=== PATIENT | male | born 1965 | race Caucasian/White ===

== ENCOUNTER 2017-04-11 09:28 | Observation (INO) | payer OTHER ==
[2017-04-11] MEDS ORDERED: PEPCID 20 MG IV PREMIX* 20 MG/50 ML BAG IV ONE ×2 (09:49→09:53)
[2017-04-11] MEDS ORDERED: ZOFRAN INJ 4 MG VIAL IVP ONE (09:49)
[2017-04-11] MEDS ORDERED: MORPHINE SULFATE INJ 4 MG IVP ONE ×2 (09:49→10:58)
--- NOTE | 2017-04-11 09:50 | DR.ABDMALE ---
HPI - Time seen Time seen: 09:30 - PCP Primary Care Physician: ruddy - HPI comment HPI Comment: PATIENT WOKE UP THIS - Complaint Chief Complaint Doctors Comments: RUQ AND EPIGASTRIC ABDOMINAL PAIN FOR SEVERAL HOURS. Chief Complaint:: Patient c/o epigastric pain that radiates to back with nausea. Patient states he woke up with the pain this morning. - Reviewed Nurses Notes Review: Yes - Mode of arrival Mode of Arrival: Ambulatory - Timing Onset of Chief Complaint: 04/11/17 Came on: Suddenly - Duration Duration: Constant Duration: Hours - Location Location: RUQ, Epigastric - Severity Severity: Moderate - Quality Quality: Sharp - Context Onset: Suddenly History of: None - Modifying factors Worsening Factors: Nothing Improving Factors: Nothing PMH - PMH Past Medical History: No Past Surgical History: No - Family History History of Family Medical Conditions: No - Social History Does patient currently use any type of tobacco product: No Have you used tobacco products in the last 12 months: No Type of Tobacco Use: None Does any household member use tobacco: No Alcohol Use: None Do you use any recreational Drugs:: No Lives With: Family Lives Where: Home - infectious screening In the last 2 months have you had wt loss of >10#?: NO Have you had fever, night sweats or hemotysis?: No Have you traveled outside the country in the last 6 months?: No Isolation: Standard ROS - Review of Systems Constitutional: No Symptoms Reported Eyes: No Symptoms Reported ENTM: No Symptoms Reported Respiratoy: No Symptoms Reported Cardiovascular: No Symptoms Reported Gastrointestinal/Abdominal: Abdominal Pain Genitourinary: No Symptoms Reported Neurological: No Symptoms Reported Musculoskeletal: No Symptoms Reported Integumentary: No Symptoms Reported Hematologic/Lymphatic: No Symptoms Reported Endocrine: No Symptoms Reported All Other Systems: Reviewed and Negative PE - Vital Signs Vital Signs: Temp Pulse Pulse Resp BP BP Pulse Ox 04/11/17 11:39 78 26 H 198/82 96 04/11/17 11:05 76 25 H 214/98 04/11/17 10:50 70 20 201/100 04/11/17 09:43 74 18 222/119 98 04/11/17 09:29 98.2 F 75 19 200/98 98 - General Limitations: No Limitations General Appearance: Alert - Head Head Exam: Normal Inspection - Eyes Eye exam: Normal Appearance - ENT ENT Exam: Normal External Ear Exam - Neck Neck Exam: Normal Inspection - Chest Chest Inspection: Symmetric Chest Wall Rise - Respiratory Respiratory Exam: Normal Lung Sounds Bilat Respiratory Exam: Bilateral Clear to Auscultation - Cardiovascular Cardiovascular Exam: Regular Rate, Normal Rhythm, Normal Heart Sounds - Abdominal Exam Abdominal Exam: Normal Bowel Sounds, Soft. negative: Tenderness - Rectal Rectal Exam: Deferred - Back Back Exam: Normal Inspection - Extremeties Extremities Exam: Normal Inspection - Exam: Male: Deferred - Neurologic Neurological Exam: Alert, Oriented X3 - Psychiatric Psychiatric Exam: Normal Affect, Normal Mood - Skin Skin Exam: Normal Color MDM - Additional Information Obtained From Additional information provided by: Family - Differential Diagnosis Differential Diagnosis: Bowel Obstruction, Cholelethiasis, Diverticular disease , Esophagitis, Gastritus/PUD, Gastroenteritis, Pancreatitis, Urinary tract infection, Urolithiasis Course - Treatment Treatment: SEE ORDERS. - Education/Counseling Education/Counseling: Patient, Education Educated On: Treatment, Diagnosis, Needs for Follow Up ROR - Labs Reviewed Laboratory Results Reviewed?: Yes Result Diagrams: 04/11/17 09:40 04/11/17 09:40 Laboratory: WBC 11.0 X10^3/uL (3.6-10.0) H 04/11/17 09:40 RBC 5.21 X10^6/uL (4.7-6.0) 04/11/17 09:40 Hgb 15.5 g/dL (13.5-18.0) 04/11/17 09:40 Hct 45.2 % (42.0-54.0) 04/11/17 09:40 MCV 86.7 fL (80.0-100.0) 04/11/17 09:40 MCH 29.8 pg (27.0-34.0) 04/11/17 09:40 MCHC 34.4 g/dL (33.0-35.0) 04/11/17 09:40 RDW 13.7 % (11.6-16.5) 04/11/17 09:40 Plt Count 187 X10^3/uL (150.0-450.0) 04/11/17 09:40 MPV 9.4 fL (7.4-11.0) 04/11/17 09:40 Neut % 55.4 % (42.0-75.0) 04/11/17 09:40 Lymph % 29.3 % (21.0-51.0) 04/11/17 09:40 [place] % 8.6 % (0.0-13.0) 04/11/17 09:40 Eos % 5.5 % (0.9-2.9) H 04/11/17 09:40 Baso % 1.2 % (0.2-1.0) H 04/11/17 09:40 Neut # 6.1 x10^3/uL (2.2-4.8) H 04/11/17 09:40 Lymph # 3.2 X10^3/uL (1.3-2.9) H 04/11/17 09:40 [place] # 1.0 x10^3/uL (0.3-0.8) H 04/11/17 09:40 Eos # 0.6 x10^3/uL (0.0-0.2) H 04/11/17 09:40 Baso # 0.1 X10^3/uL (0.0-0.1) 04/11/17 09:40 Absolute Nucleated RBC 0.1 /100WBC 04/11/17 09:40 Sodium 141 mmol/L (136-145) 04/11/17 09:40 Corrected Sodium TNP 04/11/17 09:40 Potassium 3.6 mmol/L (3.5-5.1) 04/11/17 09:40 Chloride 104 mmol/L (98-107) 04/11/17 09:40 Carbon Dioxide 30.4 mmol/L (21-32) 04/11/17 09:40 BUN 23 mg/dL (7-18) H 04/11/17 09:40 Creatinine 1.16 mg/dL (0.70-1.30) 04/11/17 09:40 Est GFR (MDRD) Af Amer > 60 (>60) 04/11/17 09:40 Est GFR (MDRD) Non-Af > 60 (>60) 04/11/17 09:40 Glucose 108 mg/dL (65-99) H 04/11/17 09:40 Calcium 9.4 mg/dL (8.5-10.1) 04/11/17 09:40 Corrected Calcium TNP 04/11/17 09:40 Total Bilirubin 0.50 mg/dL (0.2-1.0) 04/11/17 09:40 AST 32 Units/L (15-37) 04/11/17 09:40 ALT 72 Units/L (12-78) 04/11/17 09:40 Alkaline Phosphatase 91 Units/L (46-116) 04/11/17 09:40 Creatine Kinase 45 Units/L (39-308) 04/11/17 09:40 CK-MB (CK-2) < 1.0 ng/mL (0-4.0) 04/11/17 09:40 CK/CKMB % Calc 2.2 % (<4) 04/11/17 09:40 Troponin I < 0.02 ng/mL (0-1.5) 04/11/17 09:40 Total Protein 8.2 g/dL (6.4-8.2) 04/11/17 09:40 Albumin 3.7 g/dL (3.4-5.0) 04/11/17 09:40 Globulin 4.5 g/dL (2.5-4.5) 04/11/17 09:40 Albumin/Globulin Ratio 0.8 Ratio (1.1-2.1) L 04/11/17 09:40 Amylase 25 Units/L (25-115) 04/11/17 09:40 Lipase 145 Units/L (73-393) 04/11/17 09:40 H. pylori IgG Antibody Negative (NEGATIVE) 04/11/17 09:40 - EKG Rhythm: NSR (EKG NOTED) - Diagnosis Discharge Problem: Cholelithiasis Abdominal pain Qualifiers: Abdominal location: upper abdomen, unspecified Qualified Code(s): R10.10 - Upper abdominal pain, unspecified Hypertension Qualifiers: Hypertension type: essential hypertension Qualified Code(s): I10 - Essential ( primary) hypertension - Discharge Plan Disposition: ADMITTED INPATIENT Condition: Stable - Follow ups/Referrals - Instructions
[2017-04-11] MEDS ORDERED: ZOFRAN INJ 4 MG VIAL ONE (09:54)
[2017-04-11] MEDS ORDERED: MORPHINE SULFATE INJ 4 MG ONE ×2 (09:54→11:07)
[2017-04-11] MEDS ORDERED: NS 1000 ML 1,000 ML ONE (09:54)
[2017-04-11 10:00] LABS: BASOPHILS # (AUTO) 0.1 X10^3/uL (0.0-0.1); BASOPHILS % (AUTO) 1.2 % (0.2-1.0); EOSINOPHILS # (AUTO) 0.6 x10^3/uL (0.0-0.2); EOSINOPHILS % (AUTO) 5.5 % (0.9-2.9); HEMATOCRIT 45.2 % (42.0-54.0); HEMOGLOBIN 15.5 g/dL (13.5-18.0); LYMPHOCYTES # (AUTO) 3.2 X10^3/uL (1.3-2.9); LYMPHOCYTES % (AUTO) 29.3 % (21.0-51.0); MEAN CORPUSCULAR HEMOGLOBIN 29.8 pg (27.0-34.0); MEAN CORPUSCULAR HGB CONC 34.4 g/dL (33.0-35.0); MEAN CORPUSCULAR VOLUME 86.7 fL (80.0-100.0); MEAN PLATELET VOLUME 9.4 fL (7.4-11.0); MONOCYTES % (AUTO) 8.6 % (0.0-13.0); NEUTROPHILS # (AUTO) 6.1 x10^3/uL (2.2-4.8); NEUTROPHILS % (AUTO) 55.4 % (42.0-75.0); PLATELET COUNT 187 X10^3/uL (150.0-450.0); RED BLOOD COUNT 5.21 X10^6/uL (4.7-6.0); RED CELL DISTRIBUTION WIDTH 13.7 % (11.6-16.5)
[2017-04-11] MEDS ORDERED: NS 1000 ML 1,000 ML IV SCH (10:00)
[2017-04-11 10:06] LABS: AMYLASE 25 Units/L (25-115); LIPASE 145 Units/L (73-393)
[2017-04-11 10:14] LABS: BLOOD UREA NITROGEN 23 mg/dL (7-18); CALCIUM 9.4 mg/dL (8.5-10.1); CARBON DIOXIDE 30.4 mmol/L (21-32); CHLORIDE 104 mmol/L (98-107); CREATININE 1.16 mg/dL (0.70-1.30); SODIUM 141 mmol/L (136-145); TROPONIN I < 0.02 ng/mL (0-1.5); eGFR BLACK RACES > 60 (>60); eGFR NON BLACK RACES > 60 (>60)
[2017-04-11 10:28] LABS: ALANINE AMINOTRANSFERASE 72 Units/L (12-78); ALBUMIN 3.7 g/dL (3.4-5.0); ALKALINE PHOSPHATASE 91 Units/L (46-116); ASPARTATE AMINO TRANSFERASE 32 Units/L (15-37); CKMB % 2.2 % (<4); CREATINE KINASE 45 Units/L (39-308); CREATINE KINASE MB < 1.0 ng/mL (0-4.0); TOTAL PROTEIN 8.2 g/dL (6.4-8.2)
[2017-04-11] MEDS ORDERED: NIFEDIPINE CAP 10 MG PO ONE (10:29)
--- NOTE | 2017-04-11 10:38 | CT ---
HISTORY: Abdominal pain Study: CT abdomen pelvis without contrast Comparison: None Technique: Axial noncontrast images with coronal and sagittal reformats. Dose reduction procedures we re used with mA/kv adjusted for body size. The examination is limited due to the lack of intravenous and oral contrast. Findings: The lung bases are clear. The liver is normal in size and configuration but decreased in attenuation suggestive of fatty infiltration. Multiple gallstones are present within the gallbladder. There are n o findings suggestive of cholecystitis. The spleen, adrenal glands, and pancreas are within normal li mits to the limitations of an unenhanced examination. The kidneys are unobstructed and without stones . No ureteral calculi are identified. The appendix is not identified with absolute certainty. There a re no secondary signs of appendicitis. There are no findings suggestive of diverticulitis or colitis. No enlarged intraperitoneal or retroperitoneal lymphadenopathy is identified. Scattered nonenlarged Andry nodes are present. Examination of the pelvis demonstrated no evidence for pelvic masses, pelvic fluid, or pelvic lymphadenopathy. No bladder abnormality is identified. No lytic or blastic skeletal lesions are identified. IMPRESSION: Diffuse fatty infiltration of the liver Cholelithiasis without evidence for cholecystitis Reported By:
[2017-04-11] MEDS ORDERED: NIFEDIPINE CAP 10 MG ONE (10:52)
[2017-04-11 11:34] LABS: BILIRUBIN,URINE NEGATIVE (NEGATIVE); BLOOD/HEMOGLOBIN,URINE 1+ (NEGATIVE); GLUCOSE, URINE NEGATIVE (NEGATIVE); KETONES,URINE 1+ (NEGATIVE); LEUKOCYTE ESTERASE ,URINE NEGATIVE (NEGATIVE); NITRITES,URINE NEGATIVE (NEGATIVE); PH,URINE 6.5 (5.0 - 8.0); PROTEIN,URINE 1+ (NEGATIVE); UROBILINOGEN,URINE NORMAL (NORMAL)
[2017-04-11] MEDS ORDERED: PEPCID 20 MG IV PREMIX* 20 MG/50 ML BAG IV PRN (11:47)
[2017-04-11] MEDS ORDERED: MORPHINE SULFATE INJ 2 MG INJ IVP PRN (11:47)
[2017-04-11 11:50] LABS: APPEARANCE,URINE CLOUDY (CLEAR); BACTERIA,URINE TRACE /HPF (NEGATIVE); COLOR,URINE YELLOW (YELLOW); SQUAMOUS EPITHELIAL CELL,UR MODERATE /HPF (NEGATIVE)
[2017-04-11] MEDS ORDERED: ZOFRAN INJ 4 MG VIAL IVP PRN (11:50)
[2017-04-11] MEDS ORDERED: CATAPRES-TTS-1 TD SCH (12:00)
[2017-04-11] MEDS: NS 1/2 1000 ML IV 1,000 ML IV SCH (15:04)
[2017-04-11 15:27] VITALS: BMI 47.0
[2017-04-11] MEDS ORDERED: PREVNAR 13 IM ONE (15:27)
[2017-04-11] MEDS ORDERED: FLUVIRIN IM ONE (15:27)
[2017-04-11] MEDS ORDERED: NS 1/2 1000 ML IV 1,000 ML IV ONE (15:44)
--- NOTE | 2017-04-11 20:01 | US ---
RIGHT UPPER QUADRANT ULTRASOUND HISTORY: Epigastric pain Comparison: None Technique: Multiple borden scale and color flow Doppler images of the right upper quadrant were obtaine d. Findings: Overall study is limited by overlying bowel gas. The liver is hyperechoic. No focal mass. No intrahe patic bile duct dilatation. Multiple gallstones are seen. No pericholecystic fluid or gallbladder wal l thickening. The technologist did not report a positive sonographic Betancourt's sign. The common bile d uct could not be identified. The right kidney measures 11.5 cm. No hydronephrosis or renal masses. IMPRESSION: 1. Cholelithiasis without other evidence cholecystitis. 2. Hepatic steatosis. Reported By:
[2017-04-12 05:49] LABS: BASOPHILS # (AUTO) 0.1 X10^3/uL (0.0-0.1); EOSINOPHILS # (AUTO) 0.4 x10^3/uL (0.0-0.2); EOSINOPHILS % (AUTO) 4.2 % (0.9-2.9); HEMATOCRIT 39.8 % (42.0-54.0); HEMOGLOBIN 13.6 g/dL (13.5-18.0); LYMPHOCYTES # (AUTO) 2.8 X10^3/uL (1.3-2.9); LYMPHOCYTES % (AUTO) 27.1 % (21.0-51.0); MEAN CORPUSCULAR HEMOGLOBIN 29.9 pg (27.0-34.0); MEAN CORPUSCULAR HGB CONC 34.2 g/dL (33.0-35.0); MEAN CORPUSCULAR VOLUME 87.3 fL (80.0-100.0); MEAN PLATELET VOLUME 9.8 fL (7.4-11.0); MONOCYTES % (AUTO) 9.9 % (0.0-13.0); NEUTROPHILS # (AUTO) 5.9 x10^3/uL (2.2-4.8); NEUTROPHILS % (AUTO) 57.8 % (42.0-75.0); PLATELET COUNT 174 X10^3/uL (150.0-450.0); RED BLOOD COUNT 4.56 X10^6/uL (4.7-6.0); RED CELL DISTRIBUTION WIDTH 13.9 % (11.6-16.5); WHITE BLOOD COUNT 10.1 X10^3/uL (3.6-10.0)
[2017-04-12 06:14] LABS: ALANINE AMINOTRANSFERASE 112 Units/L (12-78); ALBUMIN 3.1 g/dL (3.4-5.0); ALKALINE PHOSPHATASE 79 Units/L (46-116); AMYLASE 24 Units/L (25-115); ASPARTATE AMINO TRANSFERASE 76 Units/L (15-37); BLOOD UREA NITROGEN 20 mg/dL (7-18); CALCIUM 8.6 mg/dL (8.5-10.1); CARBON DIOXIDE 28.7 mmol/L (21-32); CHLORIDE 105 mmol/L (98-107); COR CA(FOR HYPOALB) 9.3 mg/dL (8.5-10.1); CREATININE 1.15 mg/dL (0.70-1.30); LIPASE 135 Units/L (73-393); SODIUM 141 mmol/L (136-145); TOTAL PROTEIN 6.9 g/dL (6.4-8.2); eGFR BLACK RACES > 60 (>60); eGFR NON BLACK RACES > 60 (>60)
--- NOTE | 2017-04-12 09:07 | DR.CONSULT ---
Consult - Consultation for Day of: Date: 04/11/17 - Chief Complaint Chief Complaint: RUQ pain. - Allergies Allergies/Adverse Reactions: Allergies Allergy/AdvReac Type Severity Reaction Status Date / Time penicillin G Allergy Verified 04/11/17 09:31 - History of Present Illness History of Present Illness: The patient is a 51 yo M who presented to the [facility] ER with RUQ pain. The pain was sharp with radiation to the back. (+) nausea but no vomiting. The patient reports the pain awoke him from sleep. (- ) fatty food intake the night before. Mr. Osullivan does report having diarrhea the day prior without any other symtpoms. A CT in the ER demonstrated cholelithiasis without cholecystitis. The patient was admitted for pain control and anti-emetics. - Past Medical History Past Medical History: Diabetes, Hypertension - Past Surgical History Surgical History: No History - Family History Family Medical History: Diabetes Mellitus, Hypertension - Social History Does patient currently use any type of tobacco product: No Have you used tobacco products in the last 12 months: No Type of Tobacco Use: None How many years tobacco product used: 50 Does any household member use tobacco: No Alcohol Use: None Drug Use: None - Medications Home Medications: NK [NK] 04/11/17 [History Confirmed 04/11/17] - Review of Systems Constitutional: No Symptoms Reported Eyes: No Symptoms Reported ENT: No Symptoms Reported Respiratory: Shortness of Breath (With exertion) Gastrointestinal: Nausea, Abdominal Pain, Diarrhea (Resolved) Genitourinary: No Symptoms Reported Musculoskeletal: No Symptoms Reported Skin: No Symptoms Reported Neurological: No Symptoms Reported - Physical Exam Vital Signs: Temperature 98.5 F Pulse Rate [Left Brachial] 67 Pulse Rate [Apical] 82 Pulse Rate 75 Respiratory Rate 16 Blood Pressure [Left Arm] 131/68 Blood Pressure 200/98 O2 Sat by Pulse Oximetry 98 Oriented: Normal Eyes: Normal Ear: Normal Nose: Normal Respiratory: Clear Throughout Cardiovascular: Normal Auscultation: Bowel Sounds: Normal Palpation: Normal Tenderness: RUQ ((-) Betancourt's) Skin: Normal Musculoskeletal: Normal Psychiatric: Normal Mood Description: Calm Affect: Normal Speech Pattern: Clear, Appropriate - Plan Plan: 51 yo M with symptomatic cholelithiasis. Patient's pain improved. Tolerated low fat diet last pm without pain or nausea. However, multiple stones and h/o diabetes. Recommend elective cholecystectomy. h/o noncompliant HTN. Mild SOB with exertion. May need cardiac clearance prior to general anesthesia. Will discuss with primary team. Risk / benefits surgical intervention d/w patient who request surgery.
--- NOTE | 2017-04-12 11:41 | DR.H&P ---
H&P - History & Physical for Day of: H&P Date: 04/11/17 - Chief Complaint Chief Complaint: ABDOMINAL PAIN - Allergies Allergies/Adverse Reactions: Allergies Allergy/AdvReac Type Severity Reaction Status Date / Time penicillin G Allergy Verified 04/11/17 09:31 - History of Present Illness History of Present Illness: IS A 51 YEAR OLD PATIENT OF OURS WHO PRESENTED TO THE EMERGENCY ROOM WITH COMPLAINTS OF RUQ AND EPIGASTRIC PAIN UPON WAKING UP THIS MORNING. HE REPORTS THAT PAIN RADIATES TO THE BACK. PAIN IS ACCOMPAINIED BY NAUSEA. HE DENIES FEVER, VOMITING, OR DIARRHEA. PATIENT REPORTS A HISTORY OF HTN AND DIABETES, BUT STATES THAT HE DOES NOT TAKE MEDICATIONS DUE TO INABILITY TO PAY FOR THEM. JOSHUA IS MORBIDLY OBESE AND IS NOT COMPLAINT WITH A DIABETIC OR CARDIAC DIET. ON EXAMINATION, LUNGS ARE CLEAR TO AUSCULTATION. ABDOMEN IS ROUND, SOFT, AND NOTED WITH TENDERNESS TO THE RUQ AND EPIGASTRIC REGIONS. NORMAL BOWEL SOUNDS ARE NOTED IN ALL QUADRANTS. ON ARRIVAL, VITAL SIGNS WERE 98.2-75-19-98%-200/98. LABS AND CT WERE OBTAINED. ABNORMAL LAB VALUES INCLUDE THE FOLLOWING: WBC 11.0, BUN 23, GLUCOSE 108, H-PYLORI NEGATIVE. CT ABD/PELVIS WITHOUT CONTRAST REPORTED DIFFUSE FATTY INFILTRATION OF THE LIVER , CHOLELITHIASIS WITOUT EVIDENCE FOR CHOLECYSTITIS. A GALLBLADDER US WAS OBTAINED AND REPORTED CHOLELITHIASIS WITHOUT OTHER EVIDENCE FOR CHOLECYSTITIS, HEPATIC STEATOSIS. AN EKG WAS OBTAINED AND REPORTED SINUS RHYTHM WITH HR 74. HE WAS GIVEN NIFEDIPINE 10MG PO IN ER. BLOOD PRESSURE EVENTUALLY DECREASED TO 180/ 85. HE WAS ALSO GIVEN MORPHINE 4MG IVP X 2, PEPCID 20MG IV, AND ZOFRAN 4MG IV IN THE ER WITH ONLY MILD IMPROVEMENT IN PAIN. PATIENT WAS ADMITTED FOR FURTHER TREATMENT AND EVALUATION. WAS CONSULTED TO REVIEW PATIENTS SCANS. WE PLANNED TO FOLLOW UP WITH AM LABS AND CONTINUE TO MONITOR PATIENT. - Past Medical History Past Medical History: Diabetes, Hypertension - Past Surgical History Surgical History: No History - Family History Family Medical History: Diabetes Mellitus, Hypertension - Social History Does patient currently use any type of tobacco product: No Have you used tobacco products in the last 12 months: No Type of Tobacco Use: None How many years tobacco product used: 50 Does any household member use tobacco: No Alcohol Use: None Drug Use: None - Medications Home Medications: NK [NK] 10/19/17 [History Confirmed 04/11/17] - Physical Exam Vital Signs: Temperature 98.7 F Pulse Rate [Left Brachial] 62 Pulse Rate [Apical] 82 Pulse Rate 75 Respiratory Rate 20 Blood Pressure [Left Arm] 126/79 Blood Pressure 200/98 O2 Sat by Pulse Oximetry 96 Oriented: Normal
[2017-04-12] MEDS: NS 1/2 1000 ML IV 1,000 ML IV SCH (22:35)
[2017-04-13 05:57] LABS: BASOPHILS # (AUTO) 0.1 X10^3/uL (0.0-0.1); BASOPHILS % (AUTO) 0.7 % (0.2-1.0); EOSINOPHILS # (AUTO) 0.7 x10^3/uL (0.0-0.2); EOSINOPHILS % (AUTO) 6.5 % (0.9-2.9); HEMATOCRIT 39.4 % (42.0-54.0); HEMOGLOBIN 13.6 g/dL (13.5-18.0); LYMPHOCYTES # (AUTO) 2.9 X10^3/uL (1.3-2.9); LYMPHOCYTES % (AUTO) 28.4 % (21.0-51.0); MEAN CORPUSCULAR HEMOGLOBIN 30.1 pg (27.0-34.0); MEAN CORPUSCULAR HGB CONC 34.5 g/dL (33.0-35.0); MEAN CORPUSCULAR VOLUME 87.1 fL (80.0-100.0); MEAN PLATELET VOLUME 9.6 fL (7.4-11.0); MONOCYTES # (AUTO) 0.9 x10^3/uL (0.3-0.8); MONOCYTES % (AUTO) 9.2 % (0.0-13.0); NEUTROPHILS # (AUTO) 5.7 x10^3/uL (2.2-4.8); NEUTROPHILS % (AUTO) 55.2 % (42.0-75.0); PLATELET COUNT 169 X10^3/uL (150.0-450.0); RED BLOOD COUNT 4.53 X10^6/uL (4.7-6.0); RED CELL DISTRIBUTION WIDTH 13.7 % (11.6-16.5); WHITE BLOOD COUNT 10.4 X10^3/uL (3.6-10.0)
[2017-04-13 06:33] LABS: ALANINE AMINOTRANSFERASE 87 Units/L (12-78); ALKALINE PHOSPHATASE 73 Units/L (46-116); ASPARTATE AMINO TRANSFERASE 35 Units/L (15-37); BLOOD UREA NITROGEN 16 mg/dL (7-18); CALCIUM 8.7 mg/dL (8.5-10.1); CARBON DIOXIDE 30.1 mmol/L (21-32); CHLORIDE 106 mmol/L (98-107); COR CA(FOR HYPOALB) 9.5 mg/dL (8.5-10.1); COR NA(FOR HYPERGLY) 142 mmol/L (136-145); CREATININE 1.06 mg/dL (0.70-1.30); SODIUM 142 mmol/L (136-145); TOTAL PROTEIN 6.7 g/dL (6.4-8.2); eGFR BLACK RACES > 60 (>60); eGFR NON BLACK RACES > 60 (>60)
[2017-04-13 12:11] VITALS: BP 115/68
[2017-04-13] MEDS: NS 1/2 1000 ML IV 1,000 ML IV SCH (12:12)
== END 2017-04-13 14:20 | disposition home or self-care (01) ==
LOC: ER 09:37 → MED/SURG 11:45
PROVIDERS: ADMIT Internal Medicine; ATTEND Internal Medicine
PROC: 3E0234Z Introduction of Serum, Toxoid and Vaccine into Muscle, Percutaneous Approach (ICD-10-PCS; principal; 2017-04-11)
PROC: 3E0234Z Introduction of Serum, Toxoid and Vaccine into Muscle, Percutaneous Approach (ICD-10-PCS; 2017-04-11)
DX: R10.84 Generalized abdominal pain (principal); I10 Essential (primary) hypertension; K80.80 Other cholelithiasis without obstruction; R10.13 Epigastric pain; R10.10 Upper abdominal pain, unspecified; Z23 Encounter for immunization
CPT/HCPCS: 36415; 74176; 76705; 80053; 81001; 82150; 82550; 82553; 83690; 84484; 85025; 86677; 90686; 93005; 94760; 96365; 96367; 96374; 96375; 99284; A4222; S0028; 90670; G0378; J2270; J2405

== ENCOUNTER 2017-07-10 11:12 | Day surgery (SDC) | payer OTHER ==
[2017-07-10] MEDS: MARCAINE 0.25% INJ ONE ×2 (07:50→09:25)
[2017-07-10] MEDS: XYLOCAINE 1% and EPINEPHRINE 1:100,000 ONE ×2 (07:50→09:25)
[2017-07-10 07:54] LABS: BASOPHILS # (AUTO) 0.1 X10^3/uL (0.0-0.1); BASOPHILS % (AUTO) 0.9 % (0.2-1.0); EOSINOPHILS # (AUTO) 0.5 x10^3/uL (0.0-0.2); EOSINOPHILS % (AUTO) 4.4 % (0.9-2.9); HEMATOCRIT 43.1 % (42.0-54.0); HEMOGLOBIN 14.8 g/dL (13.5-18.0); LYMPHOCYTES # (AUTO) 2.9 X10^3/uL (1.3-2.9); LYMPHOCYTES % (AUTO) 27.2 % (21.0-51.0); MEAN CORPUSCULAR HEMOGLOBIN 29.8 pg (27.0-34.0); MEAN CORPUSCULAR HGB CONC 34.4 g/dL (33.0-35.0); MEAN CORPUSCULAR VOLUME 86.6 fL (80.0-100.0); MEAN PLATELET VOLUME 9.1 fL (7.4-11.0); MONOCYTES # (AUTO) 1.1 x10^3/uL (0.3-0.8); MONOCYTES % (AUTO) 10.1 % (0.0-13.0); NEUTROPHILS # (AUTO) 6.1 x10^3/uL (2.2-4.8); NEUTROPHILS % (AUTO) 57.4 % (42.0-75.0); PLATELET COUNT 187 X10^3/uL (150.0-450.0); RED BLOOD COUNT 4.97 X10^6/uL (4.7-6.0); RED CELL DISTRIBUTION WIDTH 13.3 % (11.6-16.5); WHITE BLOOD COUNT 10.7 X10^3/uL (3.6-10.0)
[2017-07-10 08:04] LABS: ALANINE AMINOTRANSFERASE 39 Units/L (12-78); ALBUMIN 3.3 g/dL (3.4-5.0); ALKALINE PHOSPHATASE 80 Units/L (46-116); ASPARTATE AMINO TRANSFERASE 16 Units/L (15-37); BLOOD UREA NITROGEN 16 mg/dL (7-18); CARBON DIOXIDE 26.4 mmol/L (21-32); CHLORIDE 107 mmol/L (98-107); COR CA(FOR HYPOALB) 9.6 mg/dL (8.5-10.1); CREATININE 0.98 mg/dL (0.70-1.30); SODIUM 142 mmol/L (136-145); TOTAL PROTEIN 7.6 g/dL (6.4-8.2); eGFR BLACK RACES > 60 (>60); eGFR NON BLACK RACES > 60 (>60)
[2017-07-10] MEDS: DILAUDID INJ ONE ×3 (08:58→11:33)
[~2017-07-10 11:12] MED LIST: BENADRYL INJ 50 MG VIAL IVP PRN; DILAUDID INJ IVP PRN; DIPRIVAN VIAL 20 ML ONE; DIPRIVAN VIAL ONE; FENTANYL INJ 250 mcg ONE; NEOSTIGMINE INJ ONE; NORCURON INJ 10 MG VIAL ONE; NS 1000 ML 1,000 ML ONE; NS IRRIGATION 3000 ML 3,000 ML IR ONE; PHENERGAN INJ 25 MG IVP PRN; QUELICIN (OR ANECTINE) ONE; REGLAN INJ 10 MG VIAL IVP PRN; ROBINUL ONE; TORADOL 30 MG VIAL ONE; ULTANE GAS IN ONE; VERSED ONE; ZOFRAN INJ 4 MG VIAL IVP PRN; ZOFRAN INJ 4 MG VIAL ONE
--- NOTE | 2017-07-10 11:12 | OR.GENERIC ---
Post-Op Note Generic - Post-Op Note Operative Report: Date of Operation: July 10, 2017 Pre-Operative Diagnosis: Chronic cholecystitis. Post-Operative Diagnosis: Chronic cholecystitis. Procedure: Laparoscopic cholecystectomy. Surgeon: Nick Roach MD. [employer] Worker: Shanell Edwards CRNA. Specimen: Gallbladder. Estimated blood loss: Minimal. Complications: None. Summary: The patient is a 51 year old male who presented with chronic cholecystitis. The patient was offered cholecystectomy. The risk and benefits of the procedure including difficulty with anesthesia, bleeding, infection, conversion to open procedure, bile leak, hernia formation, DVT, as well as PE were discussed with the patient. The patient understood these risks and requested the procedure. On July 10, 2017, the patient was brought to the operative theatre. A time out was performed verifying the patient and procedure. The patient received Ancef for pre-operative antibiosis. After satisfactory induction of general endotracheal anesthesia, the abdomen was prepped with Chloraprep and draped in the usual sterile fashion. The skin and subcutaneous tissue inferior to the umbilicus was anesthetized using local anesthetic. The skin was incised sharply. A 12 mm trocar was placed though the incision and into the peritoneal cavity using the Optiview technique. Carbon dioxide was infiltrated through this trocar to obtain a pneumoperitoneum of 15 mm Hg. A camera was placed through this trocar and swept in all directions. No injury was seen from entering the peritoneal cavity. A site was selected in the subxiphoid location for our 2nd trocar. The skin and fascia was anesthetized using local anesthetic. The skin was incised sharply. A 5 mm trocar was placed into the peritoneal cavity under direct visualization. In a similar manner, two additional 5 mm trocars were placed. The first was placed in the mid- clavicular line approximately 2 fingerbreadths inferior to the left costal margin and a second in the anterior axillary line approximately 2 fingerbreadths inferior to the left costal margin. The patient was placed in reverse Trendelenburg and rotated to the patients left. The gallbladder was grasped at the fundus and elevated cephalad and slightly lateral. Omental attachments were taken down using blunt dissection and electrocautery. The peritoneum on the medial and lateral aspects of the infundibulum of the gallbladder was scored using hook electrocautery. A posterior branch of the cystic artery was isolated and clipped. Using blunt dissection, the cystic artery and duct were isolated. The critical view of safety was obtained. Both of these structures were divided between endoclips. The gallbladder was dissected free using hook electrocautery. The gallbladder was placed in an endobag and removed through the umbilical trocar site. This required lengthening the fascial incision. The trocar and camera were placed back inside the abdomen. Our clips were noted in good position. Bleeding of the gallbladder fossa was controlled using electrocautery. At this point, the 5 mm trocars were removed under direct visualization. No bleeding was seen. The umbilical trocar was then removed and pneumoperitoneum released. The fascia at the umbilicus was closed using a 0-Vicryl placed in a [id number] configuration x 2. The skin edges at all incisions were re-approximated using inverted, interrupted 4-0 Monocryl sutures. Mastisol and Steri-strips were placed. Sterile dressings were placed. The patient was awakened and taken to the recovery room in stable condition. There were no complications. All counts were correct.
[2017-07-10] MEDS ORDERED: DILAUDID INJ ONE (11:17)
[2017-07-10] MEDS: PERCOCET TAB 5/325 MG PO PRN ×2 (14:19→21:14)
[2017-07-10] MEDS: DILAUDID INJ IVP PRN (22:45)
[2017-07-11] MEDS: PERCOCET TAB 5/325 MG PO PRN ×2 (01:26→05:09)
[2017-07-11] MEDS: DILAUDID INJ IVP PRN ×2 (02:45→14:28)
[2017-07-11 16:39] VITALS: BP 130/64
== END 2017-07-11 17:00 | disposition home or self-care (01) ==
LOC: SURG1 11:12 → MED/SURG 11:13 → SURG1 13:17 → MED/SURG 13:17 → SURG1 07-11 08:55 → MED/SURG 07-11 08:55
PROVIDERS: ADMIT Student in an Organized Health Care Education/Training Program; ATTEND Student in an Organized Health Care Education/Training Program
PROC: 0FT44ZZ Resection of Gallbladder, Percutaneous Endoscopic Approach (ICD-10-PCS; principal; 2017-07-10 09:15)
DX: K80.10 Calculus of gallbladder with chronic cholecystitis without obstruction (principal); I10 Essential (primary) hypertension; F32.89 Other specified depressive episodes
CPT/HCPCS: 36415; 80053; 85025; 88304; 93005; 93010; A4216; A4222; S0020; G0378; J0330; J1170; J1885; J2001; J2250; J2405; J2710; J3010; J3490